=== PATIENT | male | born 1950 | race Caucasian/White ===

== ENCOUNTER → 2018-06-18 10:19 | Outpatient (CLI) | payer MEDICARE, SELFPAY ==
[2018-06-13 10:17] VITALS: BMI 38.6
--- NOTE | 2018-06-18 10:39 | RAD_ITS ---
STUDY: X-RAY CHEST REASON FOR EXAM: Male, 68 years old. Cough. TECHNIQUE: PA and lateral views of the chest. COMPARISON: None. FINDINGS: The lungs are well-expanded. No focal mass or infiltrate. The lungs are clear and expanded. There is no demonstrated pleural abnormality. Normal size heart. Normal mediastinum and esperanza. Normal visualized pulmonary arteries. Normal visualized aortic arch and descending thoracic aorta. There are diffuse degenerative changes of the visualized thoracic spine. There is degenerative osteoarthritis of the bilateral shoulders. There is no demonstrated abnormality of the visualized soft tissue structures of the upper abdomen. RAD/Chest PA and Lateral IMPRESSION: No acute cardiopulmonary disease. Electronically Signed: Nagi Sharp DO at 18:27 EST Tel [phone], Service support ,
[2018-06-18 10:53] LABS: Absolute Lymphocyte Count 1.46 X10^3/ul (0.83-4.51); Absolute Neutrophil Count 8.3 X10^3/uL (2.0-7.7); Basophil# 0.03 X10^3/uL; Basophil% 0.3 % (0-1); Eosinophil# 0.58 X10^3/uL; Eosinophils% 5.2 % (0-5); Hematocrit 41.3 % (40-54); Hemoglobin 13.9 g/dl (13.0-16.5); Lymphocyte # 1.46 X10^3/ul (4.0); Mean Corp Hgb Conc 33.7 g/gl (32-36); Mean Corpuscular Hgb 27.5 pg (27.0-32.0); Mean Corpuscular Volume 81.6 fL (80-94); Mean Platelet Vol. 11.1 fl (6.2-12.0); Monocyte% 6.2 % (0-10); Platelet Count 180 K/mm3 (150-450); RBC Distribution Width CV 14.8 % (11.6-14.6); RBC Distribution Width SD 42.4 fl (35.1-43.9); Red Blood Count 5.06 M/mm3 (4.6-6.2); White Blood Count 11.2 K/mm3 (4.4-11.0)
[2018-06-18 10:54] LABS: POSITIVE COUNT NO; POSITIVE DIFFERENTIAL NO; POSITIVE MORPHOLOGY NO
[2018-06-18 11:16] LABS: Anion Gap 9 (5-15); BUN 20 mg/dL (7-18); BUN/Creat Ratio 25.2 RATIO (10-20); Calcium,Total 8.5 mg/dL (8.5-10.1); Chloride 106 mmol/L (98-107); Creatinine, Serum 0.79 mg/dL (0.70-1.30); EST Glomerular Filtration Rate 103 mL/min (>60); Est Glom Filt Rate - Afr Amer 124 mL/min (>60); Glucose 248 mg/dL (74-106); Potassium 4.7 mmol/L (3.5-5.1); Sodium Level 139 mmol/L (136-145)
--- OUTSIDE RECORDS SUMMARY | 2018-08-11 15:24 | XMS RPT_ITS ---
:1950 Author Organization [facility] Support Name Relationship Address Phone RHIANNON SHIPLEYQIAN Unavailable [address] + [place] [address] MEGGAN MANDUJANO Unavailable [address] + [place] [address] R Unavailable Unavailable Unavailable RHIANNON SHIPLEYMIE Unavailable [address] + [place] [address] MEGGAN MANDUJANO Unavailable [address] + [place] [address] R Unavailable Unavailable Unavailable SHIPLEYRHIANNON SINGHMIE Unavailable [address] + [place] [address] MEGGAN MANDUJANO Unavailable [address] + [place] [address] R Unavailable Unavailable Unavailable SHIPLEYRHIANNON SINGHMIE Unavailable [address] + [place] [address] MEGGAN MANDUJANO Unavailable [address] + [place] [address] R Unavailable Unavailable Unavailable QUINTEN RHIANNONMIJohana Unavailable . + ., . . MEGGAN MANDUJANO Unavailable [address] + [place] [address] R Unavailable Unavailable Unavailable MEGGAN MANDUJANO Unavailable [address] + [place] [address] R Unavailable Unavailable Unavailable JAI MANDUJANO Unavailable [address] + [place] [address] JAI MANDUJANO Unavailable [address] + [place] [address] LUCIO MANDUJANOLENE Unavailable [address] + [place] [address] NAZIAXUQUELENE Unavailable [address] + [place] [address] Care Team Providers Name Role Phone ANNEMARIE OLGUIN, RITA Lazaro Attending Unavailable URIEL NARVAEZ MD Primary Care Unavailable AHSAN SAHU, Mel LINDA Attending Unavailable URIEL NARVAEZ MD Primary Care Unavailable Jaycee Perez Attending Unavailable Violetta, Efraín Attending Unavailable URIEL NARVAEZ Referring Unavailable Violetta, Elma Attending Unavailable Violetta, Efraín Referring Unavailable URIEL NARVAEZ Primary Care Unavailable Violetta, Efraín Attending Unavailable Violetta, Elma Referring Unavailable URIEL NARVAEZ Primary Care Unavailable Violetta, Elma Attending Unavailable Violetta, Elma Referring Unavailable URIEL NARVAEZ Primary Care Unavailable Violetta, Elma Attending Unavailable Violetta, Efraín Referring Unavailable URIEL NARVAEZ Primary Care Unavailable Violetta, Elma Consulting Unavailable PROBLEMS PROBLEMS DATE TYPE CONDITION / CODE ATTENDING STATUS SOURCE 06/18/2018 Unknown Z95.5 - Presence of Violetta, Elma Active [facility] coronary angioplasty [facility] implant and graft / Hospital Z95.5(ICD-10) Repository 06/18/2018 Unknown I25.10 - Violetta, Efraín Active [facility] Atherosclerotic [facility] heart disease of [facility] [place] coronary Repository artery without angina pectoris / I25.10(ICD-10) 06/18/2018 Unknown I10 - Essential Violetta, Efraín Active [facility] (primary) Community hypertension / Hospital I10(ICD-10) Repository 06/18/2018 Unknown R06.00 - Dyspnea, Violetta, Efraín Active [facility] unspecified / Community R06.00(ICD-10) Hospital Repository 06/13/2018 Unknown E78.5 - Violetta, Efraín Active [facility] Hyperlipidemia, Community unspecified / Hospital E78.5(ICD-10) Repository 11/22/2017 Admitting Diabetes mellitus AHSAN SAHU, Active [facility] Diagnosis due to underlying MS. MCKEON [facility] condition without Repository complications / E08.9(ICD-10) 11/22/2017 Admitting Mixed hyperlipidemia AHSAN SAHU, Active [facility] Diagnosis / E78.2(ICD-10) MS. LINDA [facility] Repository PROCEDURES PROCEDURES No Procedure Records FoundRESULTS RESULTS 12 LEAD ELECTROCARDIOGRAM Observed: 06/26/2018 Status: F Source: [place] 9:05 AM [facility] REPOSITORY [facility] Cardiovascular Services [address] [place] [address] 12 Lead EKG 06/23/18 0544 MR#: [id number] Acct: [id number] Name: NAZIASUSHIL River Rep #: [id number] : 1950 68 From: Efraín Shipley MD Attending Dr: Efraín Shipley MD Status: DEP [facility] Ordering Dr: Lane Hampton MD Date: 06/22/18 Location: ICU Sex: M C Admitted: Test Reason : AM EKG Blood Pressure : / mmHG Vent. Rate : 071 BPM Atrial Rate : 071 BPM P-R Int : 152 ms QRS Dur : 082 ms QT Int : 396 ms P-R-T Axes : 042 017 013 degrees QTc Int : 430 ms Normal sinus rhythm Normal ECG No previous ECGs available Confirmed by EFRAÍN SHIPLEY MD ([id number]), publications editor SAVANAH MCKNIGHT ([id number]) on 06/26/2018 9:07:07 AM Referred By: Efraín Shipley Confirmed By:EFRAÍN SHIPLEY MD 06/26/18 0907 Date Efraín Shipley MD CC: Efraín Shipley MD; Lane Hampton MD; Uriel Narvaez MD Signed 12 LEAD ELECTROCARDIOGRAM Observed: 06/26/2018 Status: F Source: [place] 9:05 AM [facility] REPOSITORY [facility] Cardiovascular Services [address] [place] [address] 12 Lead EKG 06/22/18 0943 MR#: [id number] Acct: [id number] Name: SUSHIL MANDUJANO Rep #: [id number] : 1950 68 From: Efraín Shipley MD Attending Dr: Efraín Shipley MD Status: DEP [facility] Ordering Dr: Lane Hampton MD Date: 06/23/18 Location: ICU Sex: M C Admitted: Test Reason : POST PCI Blood Pressure : / mmHG Vent. Rate : 061 BPM Atrial Rate : 061 BPM P-R Int : 160 ms QRS Dur : 084 ms QT Int : 386 ms P-R-T Axes : 037 020 020 degrees QTc Int : 388 ms Normal sinus rhythm Normal ECG No previous ECGs available Confirmed by EFRAÍN SHIPLEY MD ([id number]), publications editor SAVANAH MCKNIGHT ([id number]) on 06/26/2018 9:07:33 AM Referred By: Efraín Shipley Confirmed By:EFRAÍN SHIPLEY MD 06/26/18906 Date Efraín Shipley MD CC: Efraín Shipley MD; Lane Hampton MD; Uriel Narvaez MD Signed DISCHARGE INSTRUCTION Observed: 06/23/2018 Status: F Source: [place] 9:42 AM [facility] REPOSITORY [facility] Medical Records Department [address] [place] [address] Instructions for Home/Discharge Instructions 06/23/18 09 MR#: [id number] Acct: [id number] Name: SUSHIL MANDUJANO Rep #: [id number] : 1950 68 From: Efraín Shipley MD PCP: Uriel Narvaez MD Status: REG [facility] Discharge Diet: Low fat/ Low Cholesterol Lifting Restrictions: 10 pounds and also avoid any pushing or pulling for 3 days after your test. Additional Activity Instructions:: You must have someone drive you home. Do not drive until instructed by your doctor. You must have someone stay with you all night after your test. Rest in bed or on the couch until the next morning. Limit the number of times you go up and down stairs the day of your test. Apply pressure to the puncture site if you sneeze or cough. Call your doctor if your incision/area has: Increased Pain/ Swelling, Increased Redness, Foul Smelling Discharge, Swelling at the incision site Call your doctor if you observe: Fever of 101 or Higher Additional Dressing/Incision Instructions:: Keep the dressing (bandage) on until the next morning. You may then shower, but do not take a tub bath for 5 days after your test. It is normal to have some tenderness and discomfort at the puncture site. Sometimes bruising also occurs. However, if pain, numbness, or coldness occurs below the puncture site (in your leg, toes, arms or fingers) call your doctor at once. You may have a small, marble sized knot at the puncture site. This is normal. Do not rub it. It will go away in 4-6 weeks. Bleeding can occur from the area where the puncture was done. Blood may spurt or drip from the site. If blood spurts, apply pressure right away to stop bleeding and call 911. Although rare, bleeding into the tissue (hematoma) can also occur. If this happens, a large, firm area goose egg under the skin will appear. If any of these occur, lie down as flat as you can and have someone apply firm pressure to the cath site with a gauze pad or a clean washcloth for 10-15 minutes. Call 911 or go to the Emergency Department. Allergies/Adverse Reactions: Allergies amoxicillin [From Augmentin] Adverse Reaction (Verified 05/23/18 10:44) gi upset clavulanic acid [From Augmentin] Adverse Reaction (Verified 05/23/18 10:44) gi upset Medications to take at Discharge insulin NPH isophane U- 100 human 100 unit/mL subcutaneous suspension 50 unit SC BID ml 05/22/18 lisinopril 20 mg-hydrochlorothiazide 12.5 mg tablet 1 tab PO DAILY 05/22/18 sertraline 100 mg tablet 100 mg PO DAILY 05/22/18 aspirin 81 mg tablet,delayed release 81 mg PO DAILY #90 tab 06/13/18 atenolol 50 mg tablet 50 mg PO DAILY #90 tab 06/13/18 clopidogrel 75 mg tablet 75 mg PO DAILY #90 tab 06/13/18 metformin ER 500 mg tablet,extended release 24 hr 500 mg PO BID tab 06/13/18 rosuvastatin 20 mg tablet 20 mg PO DAILY #90 tab 06/13/18 Primary Care Physician: Uriel Narvaez MD [Primary Care Provider] - Test Results: Test results from this visit will be discussed in further detail at your follow-up appointment, if applicable. When: heart group office will call for follow up and stress test Proposed Discharge Date: 06/23/18 Cardiac Rehabilitation Info Cardiac Rehabilitation Program Information: Cardiac Rehabilitation is important for patients like you who are recovering from a heart problem. Cardiac rehabilitation programs are recognized as integral to the continued care of the patient with coronary heart disease. The cardiac rehabilitation program is designed to optimize a patient's physical, psychological, and social functioning. Health manager intensive care work in cardiac rehabilitation programs and assist you with getting the treatments you need to get stronger and healthier - like exercise, healthy eating habits, and medications. Cardiac rehabilitation has been show to help people with heart problems live longer and have better life enjoyment than people who do not go to cardiac rehabilitation. Please contact the Cardiac Rehabilitation Program at [facility] at in two weeks if you have not heard from them. 06/23/18 0942 <Electronically signed by Efraín Shipley MD> Date Efraín Shipley MD CC: Uriel Narvaez MD BEDSIDE GLUCOSE Collected: 06/23/2018 Status: F Source: [place] 6:51 AM [facility] REPOSITORY TYPE CODE TESTS RESULT OUT OF REFERENCE UNITS RANGE LAB L501.080 70-110 mg/dL High BEDSIDE GLU 234 Result Comment: MANAGEMENT OF PATIENT CARE PER NURSING PROTOCOL Performed By: #### L501.080 #### [facility] Point of Care [address] [place] [address] CBC-COMPLETE BLOOD CNT Collected: 06/23/2018 Status: F Source: [place] NO DIFF 4:10 AM [facility] REPOSITORY TYPE CODE TESTS RESULT OUT OF RANGE REFERENCE UNITS LAB L100.1000 4.4-11.0 K/mm3 High WBC 11.2 LAB L100.1200 4.6-6.2 M/mm3 Normal RBC 5.23 LAB L100.1300 13.0-16.5 g/dl Normal HGB 14.1 LAB L100.1400 40-54 % Normal HCT 42.1 LAB L100.1500 80-94 fL Normal MCV 80.5 LAB L100.1600 27.0-32.0 pg Normal MCH 27.0 LAB L100.1700 32-36 g/gl Normal MCHC 33.5 LAB L100.1810 11.6-14.6 % High RDW CV 15.0 LAB L100.1820 35.1-43.9 fl Normal RDW SD 43.5 LAB L100.1900 150-450 K/mm3 Normal PLT 178 LAB L100.2000 6.2-12.0 fl Normal MPV 10.9 Performed By: #### L100.0500 #### [facility] [address] [place], [place], [address] BASIC METABOLIC Collected: 06/23/2018 Status: F Source: [place] PROFILE (BMP) 4:10 AM [facility] REPOSITORY TYPE CODE TESTS RESULT OUT OF RANGE REFERENCE UNITS LAB L501.0100 74-106 mg/dL High GLU 205 Result Comment: Glucose result greater than or equal to 200 mg/dL suggests DIABETES MELLITUS per A.D.A. criteria. Please note revised GLUCOSE reference range effective 2017. LAB L501.1000 7-18 mg/dL Normal BUN 15 LAB L501.1100 0.70-1.30 mg/dL Normal CREAT,SERUM 0.73 Result Comment: The validity of the calculated GFR AND GFRAA in patients over 70 years has not been determined. Clinical correlation is essential. LAB L501.1110 >60 mL/min Normal EST GFR 113 Result Comment: Non- GFR Calc LAB L501.1115 >60 mL/min Normal EST GFR - AA 136 Result Comment: GFR Calc LAB L501.1255 ml/min Normal Estimated CRCL 74.25 LAB L501.1300 10-20 RATIO High BUN/CRE 20.4 LAB L501.2200 8.5-10 mg/dL Low .1 CA 8.4 LAB L501.5300 136-14 mmol/L Normal 5 NA 140 LAB L501.5600 3.5-5. mmol/L Normal 1 K 4.3 LAB L501.5900 98-107 mmol/L Normal CL 104 LAB L501.6100 21.0-3 mmol/L Normal 2.0 CO2 27.0 LAB L501.6200 5-15 Normal GAP 9 Performed By: #### L500.2500, L500.4100 #### [facility] [address] [place], [place], [id number] LIPID PROFILE Collected: 06/23/2018 Status: F Source: [place] 4:10 AM [facility] REPOSITORY TYPE CODE TESTS RESULT OUT OF RANGE REFERENCE UNITS LAB L501.4900 200 mg/dL Normal CHOL 120 Result Comment: <200 mg/dL Desirable 200-240 mg/dL Borderline >240 mg/dL High Risk LAB L501.5000 mg/dL High TRIG 314 Result Comment: The drugs N-Acetylcysteine and Metamizole may falsely depress this assay. Serum Triglycerides Reference Interval Normal <150 mg/dL Borderline high 150 - 199 mg/dL High 200 - 499 mg/dL Very High > or = 500 mg/dL LAB L501.6400 mg/dL Low HDL 25 Result Comment: The drugs N-Acetylcysteine and Metamizole may falsely depress this assay. Reference Range HDL <40 mg/dL Low HDL Cholesterol HDL >or= 60 mg/dL High HDL Cholesterol LAB L501.6500 0-130 mg/dL Normal LDL 32 LAB L501.6600 5-40 mg/dL High VLDL 63 Performed By: #### L500.2500, L500.4100 #### [facility] [address] [place], [place], [id number] BEDSIDE GLUCOSE Collected: 06/22/2018 Status: F Source: [place] 9:27 PM [facility] REPOSITORY TYPE CODE TESTS RESULT OUT OF REFERENCE UNITS RANGE LAB L501.080 70-110 mg/dL High BEDSIDE GLU 190 Result Comment: MANAGEMENT OF PATIENT CARE PER NURSING PROTOCOL Performed By: #### L501.080 #### [facility] Point of Care [address] [place], [place] [id number] BEDSIDE GLUCOSE Collected: 06/22/2018 Status: F Source: [place] 4:50 PM [facility] REPOSITORY TYPE CODE TESTS RESULT OUT OF REFERENCE UNITS RANGE LAB L501.080 70-110 mg/dL High BEDSIDE GLU 220 Result Comment: Dr Monet Followed MANAGEMENT OF PATIENT CARE PER NURSING PROTOCOL Performed By: #### L501.080 #### [facility] Point of Care [address] [place] [address] BEDSIDE GLUCOSE Collected: 06/22/2018 Status: F Source: [place] 11:24 AM [facility] REPOSITORY TYPE CODE TESTS RESULT OUT OF REFERENCE UNITS RANGE LAB L501.080 70-110 mg/dL High BEDSIDE GLU 140 Result Comment: MANAGEMENT OF PATIENT CARE PER NURSING PROTOCOL Performed By: #### L501.080 #### [facility] Point of Care [address] [place] [address] ACT ACTIVATED CLOTTING Collected: 06/22/2018 Status: F Source: [place] TIME 9:08 AM [facility] REPOSITORY TYPE CODE TESTS RESULT OUT OF RANGE REFERENCE UNITS LAB L9100.0100 74-137 sec High ACTk CLOT 153 TIME Performed By: #### L9100.0100 #### [facility] Point of Care [address] [place] [address] ECHO, COMPLETE W/ Observed: 06/19/2018 Status: F Source: [place] CONTRAST 5:33 PM [facility] REPOSITORY [facility] Cardiovascular Services [address] [place] [address] Echo Complete W/ Contrast 06/19/18 1149 MR#: [id number] Acct: [id number] Name: SUSHIL MANDUJANO Rep #: [id number] : 1950 68 From: Efraín Shipley MD Attending Dr: Efraín Shipley MD Status: REG CLI Ordering Dr: Efraín Shipley MD Date: 06/19/18 Location: [facility] Sex: M C Admitted: Reason For Study: CAD Procedure This was a 2D Doppler, Color Flow transthoracic echocardiogram. Exam performed in department. Left Ventricle Normal LV size. Left ventricular systolic function is normal. The estimated ejection fraction is 65 %. Stage 2 diastolic dysfunction. No regional wall motion abnormalities noted. Right Ventricle Normal RV size. Normal systolic function. Atria The left atrium is severely enlarged. The right atrium is mildly enlarged. Mitral Valve Mild focal mitral valve calcification. Mild-Moderate (1-2+) eccentric mitral valve insufficiency. Tricuspid Valve Normal tricuspid valve. Mild (1+) tricuspid valve insufficiency. Pulmonary artery systolic pressure is 35 mmHg. Aortic Valve Trisinus/trileaflet aortic valve. Mild focal aortic valve calcification. Pulmonic Valve Normal pulmonic valve. Great Vessels Normal aortic root. The pulmonary artery is normal size. Normal inferior vena cava. Pericardium/Pleural No pericardial effusion. Medication 22 gauge I.V. with prn adaptor inserted into left arm. Diluted definity 3ml given slow IV push to enhance endocardial definition. MMode/2D Measurements AND Calculations LVIDd: 5.2 cm IVSd: 1.3 cm Ao root diam: 3.9 cm LVIDs: 3.8 cm LVPWd: 1.4 cm RVDd: 3.9 cm FS: 27.4 % LAV(MOD-bp): 143.2 ml LA A4 area: 35.1 cm2 LA dimension(2D): 6.0 cm LAV(MOD-bp) Indexed: 60.1 ml/m2 LAV(MOD-sp2): 152.3 ml LAV(MOD-sp4): 129.3 ml RA A4 area: 21.2 cm2 Doppler Measurements AND Calculations MV E max juan: 81.2 cm/sec Lat Peak E' Juan: 6.7 cm/sec Med Peak E' Juan: 4.7 cm/sec MV A max juan: 76.7 cm/sec E/E' lat: 12.2 E/E' med: 17.4 MV E/A: 1.1 Ao V2 max: 151.6 cm/sec LV V1 max: 115.2 cm/sec PA V2 max: 86.1 cm/sec Ao max P.2 mmHg LV V1 max P.3 mmHg TR max juan: 275.4 cm/sec TR max P.3 mmHg Interpretation Summary Normal LV size. Left ventricular systolic function is normal. The estimated ejection fraction is 65 %. Stage 2 diastolic dysfunction. The left atrium is severely enlarged. Mild (1+) tricuspid valve insufficiency. Contrast injection was performed. Ordering Physician: Efraín Shipley Referring Physician: Uriel Narvaez Performed By: Keara Gaston RDCS 06/19/18 173 Date Efraín Shipley MD CC: Efraín Shipley MD; Uriel Narvaez MD Date Dictated: 06/19/18 1149 Date Transcribed: 06/19/181731 Cafe Aide: Signed CHEST PA AND LATERAL Observed: 06/18/2018 Status: F Source: [place] 10:39 AM [facility] REPOSITORY [facility] Imaging Services [address] [place] [address] Chest PA and Lateral MR#: [id number] Acct: [id number] Name: SUSHIL MANDUJANO Rep #: [id number] : 1950 M 68 From: Nagi Sharp DO PCP: Uriel Narvaez MD Status: REG CLI Study: Chest PA and Lateral Date of Exam: 06/18/18 Exam# [id number] Ordering Dr: Efraín Shipley MD STUDY: X-RAY CHEST REASON FOR EXAM: Male, 68 years old. Cough. TECHNIQUE: PA and lateral views of the chest. COMPARISON: None. FINDINGS: The lungs are well-expanded. No focal mass or infiltrate. The lungs are clear and expanded. There is no demonstrated pleural abnormality. Normal size heart. Normal mediastinum and esperanza. Normal visualized pulmonary arteries. Normal visualized aortic arch and descending thoracic aorta. There are diffuse degenerative changes of the visualized thoracic spine. There is degenerative osteoarthritis of the bilateral shoulders. There is no demonstrated abnormality of the visualized soft tissue structures of the upper abdomen. RAD/Chest PA and Lateral IMPRESSION: No acute cardiopulmonary disease. Electronically Signed: Nagi Sharp DO at 18:27 EST Tel [phone], Service support , CC: Efraín Shipley MD; Uriel Narvaez MD Cafe Aide: Signed CBC W/DIFF, AUTOMATED Collected: 06/18/2018 Status: F Source: [place] 10:29 AM [facility] REPOSITORY TYPE CODE TESTS RESULT OUT OF RANGE REFERENCE UNITS LAB L100.1000 4.4-11.0 K/mm3 High WBC 11.2 LAB L100.1200 4.6-6.2 M/mm3 Normal RBC 5.06 LAB L100.1300 13.0-16.5 g/dl Normal HGB 13.9 LAB L100.1400 40-54 % Normal HCT 41.3 LAB L100.1500 80-94 fL Normal MCV 81.6 LAB L100.1600 27.0-32.0 pg Normal MCH 27.5 LAB L100.1700 32-36 g/gl Normal MCHC 33.7 LAB L100.1810 11.6-14.6 % High RDW CV 14.8 LAB L100.1820 35.1-43.9 fl Normal RDW SD 42.4 LAB L100.1900 150-450 K/mm3 Normal PLT 180 LAB L100.2000 6.2-12.0 fl Normal MPV 11.1 LAB L100.2100 47-70 % High NEUT% 74.0 LAB L100.2200 19-41 % Low LY% 13.0 LAB L100.2300 0-10 % Normal MONO% 6.2 LAB L100.2400 0-5 % High EO% 5.2 LAB L100.2500 0-1 % Normal BASO% 0.3 LAB L100.2550 0.0-0.9 % High IM GRAN % 1.300 Result Comment: IG% - Immature Granulocytes (promyelocytes, myelocytes and metamyelocytes) > 1% indicates that a LEFT SHIFT is Present. LAB L100.2620 2.0-7.7 X10 3/uL High Absolute Neut 8.3 LAB L100.2720 0.83-4.51 X10 3/ul Normal Absolute Lymph 1.46 Performed By: #### L100.0100 #### [facility] [address] [facility] [place], [address] BASIC METABOLIC Collected: 06/18/2018 Status: F Source: [place] PROFILE (BMP) 10:29 AM [facility] REPOSITORY TYPE CODE TESTS RESULT OUT OF RANGE REFERENCE UNITS LAB L501.0100 74-106 mg/dL High GLU 248 Result Comment: Glucose result greater than or equal to 200 mg/dL suggests DIABETES MELLITUS per A.D.A. criteria. Please note revised GLUCOSE reference range effective 2017. LAB L501.1000 7-18 mg/dL High BUN 20 LAB L501.1100 0.70-1.30 mg/dL Normal CREAT,SERUM 0.79 Result Comment: The validity of the calculated GFR AND GFRAA in patients over 70 years has not been determined. Clinical correlation is essential. LAB L501.1110 >60 mL/min Normal EST GFR 103 Result Comment: Non- GFR Calc LAB L501.1115 >60 mL/min Normal EST GFR - AA 124 Result Comment: GFR Calc LAB L501.1300 10-20 RATIO High BUN/CRE 25.2 LAB L501.2200 8.5-10.1 mg/dL CA Normal 8.5 LAB L501.5300 136-145 mmol/L NA Normal 139 LAB L501.5600 3.5-5.1 mmol/L K Normal 4.7 LAB L501.5900 98-107 mmol/L CL Normal 106 LAB L501.6100 21.0-32.0 mmol/L Normal CO2 24.0 LAB L501.6200 5-15 Normal GAP 9 Performed By: #### L500.2500 #### [facility] [address] [place], [place], [address] CARDIOLOGY VISIT Observed: 06/13/2018 Status: F Source: [place] REPORT 11:09 AM [facility] REPOSITORY [facility] [address] [place] [address] OFFICE VISIT Date of Service: 06/13/18 MR#: [id number] Acct: [id number] Name: SUSHIL MANDUJANO Rep #: [id number] : 1950 Provider: Efraín Shipley MD Age/Sex: 68/M Location: [facility] Status: Signed [facility] HPI Chief Complaint: Initial visit Details: SUSHIL MANDUJANO, is a 68 M who presents to the office today for an initial visit. He is a pleasant gentleman with a history of hypertension, hyperlipidemia, diabetes mellitus, obesity who presents for an evaluation. His history dates back to 2009 when he underwent a cardiac catheterization and underwent PCI with a drug-eluting stents to the left anterior descending artery as well as PCI and a drug-eluting stent to the right coronary artery. He had been having chest discomfort and in May 2017 he underwent a pharmacologic myocardial perfusion stress test which demonstrated evidence of mild anteroseptal, mild inferior wall ischemia. He underwent a cardiac catheterization which demonstrated 99% stenosis in the mid left anterior descending artery. The first diagonal vessel had a 50% stenosis the first obtuse marginal branch had a 50% stenosis he underwent angioplasty and stenting with a 2.75 x 20 mm Synergy stent to the left anterior descending artery. He never went for the right coronary artery angioplasty. Since then he is done well but he has had occasional chest discomfort. He has not had any dizziness or diaphoresis no near syncope or syncope. He is also had muscle and joint discomfort from the atorvastatin. He has had mild pedal edema he did discontinue his Lasix 2 months ago. His physical exam today demonstrates clear lung montalvo regular rate and rhythm and no pedal edema. Intake Vital Signs06/13/18 Blood Pressure 150/7 H 06/13/18 Blood Pressure Position Standing 06/13/18 Pulse Rate 70 06/13/18 Height 5 ft 11 in 06/13/18 Weight: 277 lb 06/13/18 Body Mass Index (BMI) 38.6 Intake Visit Reasons: Transfer from [facility], stent @ [place] Jun 2017 Allergies amoxicillin [From Augmentin] Adverse Reaction (Verified 05/23/18 10:44) gi upset clavulanic acid [From Augmentin] Adverse Reaction (Verified 05/23/18 10:44) gi upset Medications insulin NPH isophane U- 100 human 100 unit/mL subcutaneous suspension 50 unit SC BID ml 05/22/18 [History Confirmed 06/13/18] lisinopril 20 mg-hydrochlorothiazide 12.5 mg tablet 1 tab PO DAILY 05/22/18 [History Confirmed 06/13/18] sertraline 100 mg tablet 100 mg PO DAILY 05/22/18 [History Confirmed 06/13/18] aspirin 81 mg tablet,delayed release 81 mg PO DAILY #90 tab 06/13/18 [Rx Confirmed 06/13/18] atenolol 50 mg tablet 50 mg PO DAILY #90 tab 06/13/18 [Rx Confirmed 06/13/18] clopidogrel 75 mg tablet 75 mg PO DAILY #90 tab 06/13/18 [Rx Confirmed 06/13/18] metformin ER 500 mg tablet,extended release 24 hr 500 mg PO BID tab 06/13/18 [History Confirmed 06/13/18] rosuvastatin 20 mg tablet 20 mg PO DAILY #90 tab 06/13/18 [Rx Confirmed 06/13/18] [facility] Medical History Atherosclerosis of coronary artery of [place] heart without angina pectoris (Chronic) Hyperlipidemia (Chronic) Essential (primary) hypertension (Chronic) Obesity (Chronic) Obstructive sleep apnea (Chronic) Osteoarthritis (Chronic) Type 2 diabetes mellitus (Chronic) Surgical History History of coronary artery stent placement (Resolved 06/16/17) Amputation finger (Resolved) History of appendectomy (Resolved) History of repair of rotator cuff (Resolved) History of umbilical hernia repair (Resolved) Family History Sister Hypertension Father Myocardial infarction Mother Cancer Social History Smoking Status: Former smoker quit date: 07/17/09 ROS Const Const: Positive for fatigue (Increase fatigue) and weakness; negative for difficulty sleeping, frequent falls, excessive sweating or headache(s) Eyes Eyes: Negative for loss of peripheral vision, transient loss of vision, blurry vision, tunnel vision or double vision ENT ENT: Negative for headache(s), dizziness, Nosebleed/epistaxis or balance problems Cardio Chest Pain: Yes Palpitations: No Edema: Bilateral (BLE ankle edema) Muscle aches with walking: None Resp Respiratory: Positive for SOB with activity (SOB with ambulation); negative for SOB at rest, SOB orthopnea\SOB lying down, paroxysmal nocturnal dyspnea or Cough GI GI: Negative nausea, heartburn, black,tarry stools or vomiting : Negative for hematuria Musc Musc: Positive for muscle aches/ myalgia and joint pain; negative for balance problems or muscle weakness Skin Skin: Negative non-healing lesions, unusual bruising or rash Neuro Neuro: Positive for weakness, lightheadedness, orthostatic symptoms, lack of coordination and other (worsening tremors ); negative for frequent falls, headache(s), blurry vision, double vision, dizziness, near syncope or syncope Mata Hematologic/Lymphatic: Negative for easy bruising or easy bleeding Endo Endo: Positive for fatigue (Increase fatigue); negative for excessive sweating or increased thirst/drinking Psych Psych: Negative for anxiety or depression Allergy Allergy/Immunology: Negative for hives, Negative for rash Cardiology Exam Const Appearance: cooperative, healthy appearing, well developed, well groomed and no acute distress Nutritional Appearance: well nourished and average body habitus Orientation: alert, awake and oriented x3 Head Head: normal to inspection, normocephalic and atraumatic Ears: hearing grossly normal bilaterally and external ears normal Nose: external nose normal, nasal mucous membranes and turbinates normal, nares normal, septum normal, no nasal discharge Face and Sinus: face symmetric Mouth: oral mucosae normal, tongue normal, oropharynx normal and moist mucous membranes Teeth and gingiva: dentition normal Throat: posterior oropharynx normal, tonsils normal and uvula midline Eyes General: appearance normal, both eyes and all related structures Eyelids: eyelids normal Conjunctivae: conjunctivae normal Pupils: PERRL, normal by confrontation and accommodation normal EOM: EOM intact bilaterally Neck Neck: normal visual inspection, trachea midline and no JVD JVD: +5 Carotids: normal carotid upstroke and bounding pulses Chest Chest inspection: normal inspection of the chest, symmetric chest movement and normal respiratory effort Auscultation: Bilateral: Clear to Auscultation Cardio Palpation: normal PMI Rate: regular rate Rhythm: regular rhythm Heart sounds: S1 normal, S2 normal and normal, physiologic split S2; negative rub, gallop or murmur GI GI: normal to inspection, soft, no hepatosplenomegaly and bowel sounds present Neuro General: alert, awake, oriented x3, no focal sensory deficit, gait normal and moves all extremities Skin Skin: no rashes or lesions noted Extremities Pulses: Normal: Right Femoral Pulse, Left Femoral Pulse, Right Dorsalis Pedis Pulse, Left Dorsalis Pedis Pulse, Right Posterior Tibial Pulse, Left Posterior Tibial Pulse, Right Radial Pulse, Left Radial Pulse Lower Extremity Edema: None: Bilateral Musculoskel Musculoskeletal: No joint tenderness Psych Psychological: normal affect Assessment AND Plan 1. Atherosclerosis of coronary artery of [place] heart without angina pectoris I25.10 TXR-PYV-FAZ-Mid LAD w/ 2.75 x 20 mm Synergy MR Stent 06/16/2017 PCI-STEPHANIE-Mid PDA w/ 2.5 x 12 mm Promus Stent, STEPHANIE-Mid RCA w/ 3.0 x 15 mm Promus 03/08/2010 PCI-STEPHANIE-Mid LAD w/ 3.0 x 15 mm and 3.0 x 24 mm [place] Stent 03/02/2010 Plan He does have atherosclerosis noted with occasional chest discomfort. He has a known stenosis in the right coronary artery for which he is due to have angioplasty. This was last evaluated in June 2017. My recommendation at this time will be to maximally medically treat him and pursue a cardiac catheterization with a view to angioplasty and stenting of the above vessels. This has been discussed with him and his they understand and agree to proceed. He will be started back on his clopidogrel in addition to a baby aspirin. Beta-blockers will be continued as well as high intensity statin. Orders Orders: 2. Dyspnea R06.00 Plan He does have some shortness of breath which is likely secondary to diastolic dysfunction and no angina. Recommendation will be for him to obtain an echocardiogram to assess his left ventricular function. Further recommendations will be made depending on the results of the above as well. Orders Orders: 3. Essential (primary) hypertension I10 Plan He does have a history of hypertension which is not very well controlled I would recommend that we increase his atenolol to 50 mg once a day in addition to his lisinopril hydrochlorothiazide. Orders Orders: 4. Hyperlipidemia E78.5 Plan He does have a history of hyperlipidemia. For secondary risk factor modification I would recommend that we place him on rosuvastatin 20 mg a day. He did have muscle aches with the atorvastatin and this will be discontinued. This is all been discussed with him and his they understand and agree to proceed. Thank you for allowing me to participate in the care of your patient. Please don't hesitate to call if any issues arise Orders Orders: Plan Detail Other Orders Orders: Other Medications New: Discontinued: Coding Level of Care Code Off vis,new,level 5 Diagnoses Atherosclerosis of coronary artery of [place] heart without angina pectoris I25.10 Dyspnea R06.00 Essential (primary) hypertension I10 Hyperlipidemia E78.5 Coding Level of Care Code Off vis,new,level 5 Diagnoses Atherosclerosis of coronary artery of [place] heart without angina pectoris I25.10 Dyspnea R06.00 Essential (primary) hypertension I10 Hyperlipidemia E78.5 06/13/18 1109 <Electronically signed by Efraín Shipley MD> Date Efraín Shipley MD Cosigner Signature: Date (if applicable) CC: Uriel Narvaez MD 12 LEAD EKG PERFORMED Observed: 06/13/2018 Status: F Source: [facility] [place], [place] 10:08 AM [facility] [place] REPOSITORY [facility] [address] [address] 12 Lead EKG performed by [facility] [place] [place] 05/23/18 1055 MR#: [id number] Acct: [id number] Name: SUSHIL MANDUJANO Rep #: [id number] : 1950 68 From: Efraín Shipley MD Attending Dr: Efraín Shipley MD Status: DEP AMB Ordering Dr: Efraín Shipley MD Date: 05/23/18 [place] [facility] [place] Sex: M C Admitted: BMS/12 Lead EKG performed by [facility] [place] [place] ECG Report Interpretation Sinus Rhythm WITHIN NORMAL LIMITSElectronically signed on 06/20/2018 at 16:32 by Efraín Shipley [facility] Software Version [id number] 06/20/18 1636 Date Efraín Shipley MD CC: Uriel Narvaez MD Date Dictated: 05/23/18 1055 Date Transcribed: 05/23/18 1055 [employer]ide: [place] Signed LIPID Collected: 11/22/2017 Status: F Source: [facility] 9:10 AM [facility] EMERGENCY DEPARTMENT REPOSITORY TYPE CODE TESTS RESULT OUT OF REFERENCE UNITS RANGE LAB CHOL(LOINC 131-200 mg/dL ) Low Cholesterol 118 Result Comment: Cholesterol Reference Interval: Less than 200 Desirable 200-239 Borderline high risk 240 and above High risk LAB TRIG(LOINC) 40-150 mg/dL Triglycerides High 232 Result Comment: Triglyceride Reference Interval: Less than 150 Normal 150-199 Borderline high risk 200-499 High risk 500 or higher Very high risk LAB HD(LOINC) 35-90 mg/dL HDL Low Cholesterol 28 Result Comment: HDL Reference Interval: Less than 40 Low - high risk 60 or above Optimal/lowers risk LAB LDL(LOINC) 0-130 mg/dL LDL Cholesterol 44 Result Comment: LDL is a calculated result and requires a 12-hr fast. LDL Reference Interval: Less than 100 Optimal 100-129 Near or above optimal 130-159 Borderline high risk 160-189 High risk 190 and above Very high risk Performed By: #### LIPID, CMP, GFR #### [place] [address] [place] [employer] [place], [place] [address] CMP Collected: 11/22/2017 Status: F Source: [facility] 9:10 AM [facility] REPOSITORY TYPE CODE TESTS RESULT OUT OF REFERENCE UNITS RANGE LAB GLU(LOINC) 80-115 mg/dL Glucose High Level 248 LAB NA(LOINC) 136-146 mEq/L Sodium Level 139 LAB K(LOINC) 3.5-5.1 mEq/L Potassium Level 4.8 LAB CL(LOINC) 98-107 mEq/L Chloride 103 LAB CO2(LOINC) 23-31 mEq/L CO2 28 LAB EBAL(LOINC mEq/L ) Electrolyte Balance 8.0 LAB BUN(LOINC) 7.0-18.0 mg/dL BUN 17.2 LAB CRE(LOINC) 0.6-1.2 mg/dL Creatinine Lvl (s) 0.6 LAB BC(LOINC) 7-27 ratio High BUN/Creatinine 29 Ratio LAB CA(LOINC) 8.4-10.2 mg/dL Calcium Lvl 8.9 LAB PROT(LOINC 6.0-8.3 G/dL ) Total Protein 7.1 LAB ALB(LOINC) 3.4-4.8 G/dL Albumin Level 4.0 LAB GLB(LOINC) G/dL Globulin 3.1 LAB AG(LOINC) 1.1-2.5 ratio A/G Ratio 1.3 LAB BILT(LOINC 0.2-1.0 mg/dL ) Bili Total 0.4 LAB AP(LOINC) 40-135 IU/L Alk Phos 87 LAB AST(LOINC) 10-40 IU/L AST/SGOT 15 LAB ALT(LOINC) 10-35 IU/L ALT/SGPT 15 Performed By: #### LIPID, CMP, GFR #### [place] [address] [place] [employer] [place], [place] [address] .GFR Collected: 11/22/2017 Status: F Source: [facility] 9:10 AM [facility] REPOSITORY TYPE CODE TESTS RESULT OUT OF REFERENCE UNITS RANGE LAB GFRAA(LOINC ml/min/1.73 ) sqm GFR 148 [place] Result Comment: GFR Population mean for , Non- Americans Ages 20-29 = 116 mL/min/1.73 sq.m. Ages 30-39 = 107 mL/min/1.73 sq.m. Ages 40-49 = 99 mL/min/1.73 sq.m. Ages 50-59 = 93 mL/min/1.73 sq.m. Ages 60-69 = 85 mL/min/1.73 sq.m. Ages 70+ = 75 mL/min/1.73 sq.m. Chronic Kidney Disease: Less than 60 mL/min/1.73 square meters End Stage Renal Disease: Less than 15 mL/min/1.73 square meters LAB GFRNO(LOINC) ml/min/1.73sqm GFR Non- >60 Result Comment: GFR Population mean for , Non- Americans Ages 20-29 = 116 mL/min/1.73 sq.m. Ages 30-39 = 107 mL/min/1.73 sq.m. Ages 40-49 = 99 mL/min/1.73 sq.m. Ages 50-59 = 93 mL/min/1.73 sq.m. Ages 60-69 = 85 mL/min/1.73 sq.m. Ages 70+ = 75 mL/min/1.73 sq.m. Chronic Kidney Disease: Less than 60 mL/min/1.73 square meters End Stage Renal Disease: Less than 15 mL/min/1.73 square meters Performed By: #### LIPID, CMP, GFR #### [place] [address] [address] XR WRIST MINIMUM 3 Observed: 11/05/2017 Status: F Source: [facility] VIEWS LEFT 2:22 PM [facility] REPOSITORY ORIGINAL XR WRIST MINIMUM 3 VIEWS LEFT, 11/05/2017 2:23 PM INDICATION: pain COMPARISON: No FINDINGS: There is mild irregularity at the volar aspect of the distal radius, with a small linear density best seen on oblique view. No other fractures are seen. A small os epilunatum is incidentally n oted. There is mild soft tissue swelling. IMPRESSION: Questionable small distal radial fracture. Interpreted By: Alejandro Weaver MD Preliminary Report By: Alejandro Weaver MD Electronically Signed By: Alejandro Weaver MD Dictated Date: 11/05/2017 2:29:29 PM Prelim Date: 11/05/2017 2:29:29 PM Sign Date: 11/05/2017 2:34:31 PM XR HAND MINIMUM 3 Observed: 11/05/2017 Status: F Source: [facility] VIEWS LEFT 2:22 PM [facility] REPOSITORY ORIGINAL XR HAND MINIMUM 3 VIEWS LEFT, 11/05/2017 2:23 PM INDICATION: pain COMPARISON: No FINDINGS: There are no acute fractures or dislocations. Alignment is within normal limits. There is joint space narrowing, as prominently in the metacarpophalangeal joints. The soft tissues are unremarkable in appearance. IMPRESSION: Degenerative joint disease, mainly at the 2nd and 3rd carpophalangeal joints. No acute findings. Interpreted By: Alejandro Weaver MD Preliminary Report By: Alejandro Weaver MD Electronically Signed By: Alejandro Weaver MD Dictated Date: 11/05/2017 2:34:50 PM Prelim Date: 11/05/2017 2:34:50 PM Sign Date: 11/05/2017 2:36:28 PM ALLERGIES ALLERGIES DATE TYPE / CODE NAME / CODE REACTION SEVERITY SOURCE 05/23/2018 Drug clavulanic gi upset Unknown [place] Allergy/416 acid/[id number](R [facility] 501134([facility] ED [facility]) Repository 05/23/2018 Drug amoxicillin/F0060 gi upset Unknown [place] Allergy/416 43533(RXNORM) [facility] 962555([facility] ED CT) Repository ENCOUNTERS ENCOUNTERS ADMIT/DISCHARGE ACCOUNT NUMBER ADMITTING ENCOUNTER LOCATION SOURCE CLASS 06/23/2018 [id number] Ambulatory BMSBuilding: [place] BMS.CF.[facility] Repository 06/22/2018/06/23/20 [id number] Ambulatory [place] [address] [place] [address] ding:CLSPRoo Repository m: [id number] 06/19/2018 [id number] [facility] 06/18/2018 [id number] Ambulatory [facility] ding:LAB Repository 06/13/2018/06/13/20 [id number] Ambulatory BMSBuilding: [place] 18 BMS.[facility] Repository 05/22/2018 [id number] Ambulatory BMSBuilding: [place] BMS.[facility] Repository 11/22/2017/11/27/19 [id number] Ambulatory [place] 18 [facility] ding:[facility] Repository 11/05/2017/11/06/19 [id number] Emergency BBuilding:ER [place] 18 [facility] Repository PAYERS PAYERS ENCOUNTER GUARANTOR PAYER SUBSCRIBER SOURCE 06/23/2018 SUSHIL Holman Primary SUSHIL Ng [id number] Insurance:[place] HERSHBERGERDOB: [facility] [id number] [place] MEDICARE[place] Repository [address]Sxe: (330) Number: [phone] () [id number] Date: [place], [place] [address]HK: 06/23/2018 Secondary NOT GIVENUNK Hernandez Insurance:SELF PAY [facility] Number: Effective Repository Date:2018-06-23 06/22/2018 SUSHIL Holman Primary SUSHIL Ng [id number] Insurance:[place] HERSHBERGERDOB: [facility] [id number] [place] MEDICAREPolicy Repository [address]Bvx: (330) Number: [phone] () [id number] Date: [place], [place] [address]ES: 06/22/2018 Secondary NOT GIVENUNK [place] Insurance:SELF PAY [facility] Number: Effective Repository Date:2018-06-13 06/19/2018 SUSHIL Holman Primary SUSHIL Ng [id number] Insurance:[place] HERSHBERGERDOB: [facility] [id number] [place] MEDICAREPolicy Repository [address]Wij: (330) Number: [phone] () [id number] Date: [place], [place] [address]MN: 06/19/2018 Secondary NOT GIVENUNK Hernandez Insurance:SELF PAY [facility] Number: Effective Repository Date:2018-06-13 06/18/2018 SUSHIL Holman Primary SUSHIL Ng [id number] Insurance:[place] HERSHBERGERDOB: [facility] SECURE CARE [id number] [place] MEDICAREPolicy Repository [address]Qel: (330) Number: [phone] () [id number] Date: [place], [place] [address]TA: 06/18/2018 Secondary NOT GIVENUNK [place] Insurance:SELF PAY [facility] Number: Effective Repository Date:2018-06-18 06/13/2018 SUSHIL Holman [id number] Insurance:COMMERCIAL HERSHBERGERDOB: [facility] Number: [id number] [id number] Repository [address]Fjh: (330) Date:2018-05-[place] [phone] () .WP: . 06/13/2018 Secondary NOT GIVENUNK Hernandez Insurance:SELF PAY [facility] Number: Effective Repository Date:2018-05-16 05/22/2018 SUSHIL Holman Primary NOT GIVENUNK [place] [id number] Insurance:SELF PAY [place] Number: Effective Repository [id number]: (330) Date:2018-05-22 [phone] () 11/22/2017 SUSHIL Holman Primary SUSHIL Holman [facility] HERSHBERGERDOB: Insurance:SECURECARE HERSHBERGERDOB: [facility] [id number] [facility] MEDICAREPolicy [id number] Repository [facility] Number: [address] [place] [address] [id number] [place], [place] [address]Shd: (330) Date:[id number]: [id number] [phone] (HP)Tel: ([phone]) Name:[id number] NATIONAL (HP) (WP) RO[address] 000-0000 (WP) [place], [place] [address]FR: 11/05/2017 [facility]:SECURECARE HERSHBERGERDOB: [facility] [id number] [facility] MEDICAREPolicy [id number] Repository [facility] Number: [address] [place], [place] [id number] [facility], [place] [address]Yqw: (330) Date:[id number]: [id number] [phone] (HP)Tel: ([phone]) Name:[id number] NATIONAL (HP) (WP) ROAD ESt 000-0000 (WP) [place], [place] [address]DR:
== END ==
LOC: LAB 10:24
PROVIDERS: Family Provider Family Medicine; PCP Family Medicine; Referring Provider Internal Medicine Cardiovascular Disease; Visit Provider Internal Medicine Cardiovascular Disease
DX: I25.10 Atherosclerotic heart disease of native coronary artery without angina pectoris (principal); R07.9 Chest pain, unspecified; Z95.5 Presence of coronary angioplasty implant and graft
CPT/HCPCS: 36415; 71046; 80048; 85025

== ENCOUNTER → 2018-06-19 11:26 | Outpatient (CLI) | payer MEDICARE, SELFPAY ==
[2018-06-13 10:17] VITALS: BMI 38.6
--- NOTE | 2018-06-19 11:31 | ECHOCS_ITS ---
Reason For Study: CAD Procedure This was a 2D Doppler, Color Flow transthoracic echocardiogram. Exam performed in department. Left Ventricle Normal LV size. Left ventricular systolic function is normal. The estimated ejection fraction is 65 %. Stage 2 diastolic dysfunction. No regional wall motion abnormalities noted. Right Ventricle Normal RV size. Normal systolic function. Atria The left atrium is severely enlarged. The right atrium is mildly enlarged. Mitral Valve Mild focal mitral valve calcification. Mild-Moderate (1-2+) eccentric mitral valve insufficiency. Tricuspid Valve Normal tricuspid valve. Mild (1+) tricuspid valve insufficiency. Pulmonary artery systolic pressure is 35 mmHg. Aortic Valve Trisinus/trileaflet aortic valve. Mild focal aortic valve calcification. Pulmonic Valve Normal pulmonic valve. Great Vessels Normal aortic root. The pulmonary artery is normal size. Normal inferior vena cava. Pericardium/Pleural No pericardial effusion. Medication 22 gauge I.V. with prn adaptor inserted into left arm. Diluted definity 3ml given slow IV push to enhance endocardial definition. MMode/2D Measurements & Calculations LVIDd: 5.2 cm IVSd: 1.3 cm Ao root diam: 3.9 cm LVIDs: 3.8 cm LVPWd: 1.4 cm RVDd: 3.9 cm FS: 27.4 % LAV(MOD-bp): 143.2 ml LA A4 area: 35.1 cm2 LA dimension(2D): 6.0 cm LAV(MOD-bp) Indexed: 60.1 ml/m2 LAV(MOD-sp2): 152.3 ml LAV(MOD-sp4): 129.3 ml RA A4 area: 21.2 cm2 Doppler Measurements & Calculations MV E max juan: 81.2 cm/sec Lat Peak E' Juan: 6.7 cm/sec Med Peak E' Juan: 4.7 cm/sec MV A max juan: 76.7 cm/sec E/E' lat: 12.2 E/E' med: 17.4 MV E/A: 1.1 Ao V2 max: 151.6 cm/sec LV V1 max: 115.2 cm/sec PA V2 max: 86.1 cm/sec Ao max P.2 mmHg LV V1 max P.3 mmHg TR max juan: 275.4 cm/sec TR max P.3 mmHg Interpretation Summary Normal LV size. Left ventricular systolic function is normal. The estimated ejection fraction is 65 %. Stage 2 diastolic dysfunction. The left atrium is severely enlarged. Mild (1+) tricuspid valve insufficiency. Contrast injection was performed. Ordering Physician: Efraín Shipley Referring Physician: Uriel Garcia Performed By: Keara Gaston RDCS
== END ==
PROVIDERS: Family Provider Family Medicine; PCP Family Medicine; Referring Provider Internal Medicine Cardiovascular Disease; Visit Provider Internal Medicine Cardiovascular Disease
DX: I25.10 Atherosclerotic heart disease of native coronary artery without angina pectoris (principal)
CPT/HCPCS: 93306; Q9957; A4216; C8929

== ENCOUNTER 2018-06-22 07:50 | Day surgery (SDC) | payer MEDICARE, SELFPAY ==
[2018-06-13 10:17] VITALS: BMI 38.6
[2018-06-21 08:27] VITALS: BMI 38.6
[2018-06-22] VITALS (19 sets, daily range): BP systolic 134–172; BP diastolic 67–95; PULSE 53–69; RESP 13–20; TEMP 36.3–36.8; O2SAT 93–98; BMI 39.4; BMI 38.6
--- NOTE | 2018-06-22 08:51 | CL.D_ITS ---
Patient Name: SUSHIL MANDUJANO Study Date: 06/22/2018 Performing: Efraín Shipley MD Ht: 70.86 inches 180 cm : 1950 Wt: 277.78 lbs 126 kg Age: 68 Gender: male BSA: 2.42 PROCEDURE(S) PERFORMED [id number]/COR/LV CLINICAL PROFILE AND INDICATIONS Indications: Suspected CAD Heart Failure: None Stress/Imaging Stress Test w/SPECT MPI: Yes Result: Positive Intermediate RiskStress Test with SP ECT MPI: Positive Intermediate Risk CAD Presentations: Stable angina. CONCLUSIONS Previously placed stent in the left anterior descending artery is patent with mild in-stent stenosis, previously placed stent in the right coronary artery is patent. Significant stenosis noted in the d istal right coronary artery. RECOMMENDATIONS Referred for immediate PCI DESCRIPTION OF PROCEDURE The patient arrived to the procedure lab. The risks and benefits of the procedure as well as a full d escription of our services here and current unavailability of surgical backup were fully explained to the patient and/or their significant other prior to the catheterization. The Timeout was completed, verifying the correct patient and procedure. The patient's procedural site was prepped and draped in the usual fashion. Local anesthetic was given subcutaneously to right groin region with Lidocaine 2%. Using a modified Seldinger technique, arterial access was obtained via the right femoral artery, a 5 Fr sheath was inserted. Left Coronary Artery selective angiography was performed in multiple views u sing a 5 Fr. JL4 catheter. Right Coronary Artery selective angiography was then performed in multiple views using a 5 Fr. 3DRC (Jackson) catheter. Left Ventriculography was performed in PELAYO projection using a 5 Fr. Pigtail catheter. LV to AO pullback pressures were then recorded. CORONARY ANGIOGRAPHY DOMINANCE: Co- Dominant LEFT HEART ASSESSMENT Left Ventricular Ejection Fraction: by LV Gram 60 % Normal LV wall motion Normal Left Ventricular systolic function LEFT MAIN: Angiographically normal LEFT ANTERIOR DECENDING ARTERY: PROX LAD: Previously placed stent has an instent 20 % restenosis DIAGONAL 1: Ostial - 50 % Stenosis CIRCUMFLEX ARTERY: Moderate luminal irregularities up to 50% RIGHT CORONARY ARTERY: PROX RCA: Previously placed stent is patent DISTAL RCA: 80 % Stenosis COMPLICATIONS PROCEDURE MEDICATIONS Versed 1 mg IV Plavix 75 mg PO 06/22/2018 08:09:45 SUMMARY OF HEMODYNAMIC DATA Time AIR REST ECG 08:07:32 AO 157/89 (115) SA 08:27:57 LV 133/18, 27 08:39:14 LV 131/11, 28 08:40:19 LV 133/12, 30 08:40:25 LVp 134/10, 25 08:40:32 AOp 139/69 (94) 08:40:37 Signed By Efraín Shipley MD On 06/22/2018 08:50:15 Efraín Shipley MD
[2018-06-22 09:26] LABS: ACT Activated Clotting Time 153 sec (74-137)
--- NOTE | 2018-06-22 09:28 | CL.I_ITS ---
Patient Name: SUSHIL MANDUJANO Study Date: 06/22/2018 Performing: Lane Hampton MD Ht: 70.86 inches 180 cm : 1950 Wt: 277.78 lbs 126 kg Age: 68 Gender: male BSA: 2.42 PROCEDURE(S) PERFORMED [id number] W OR WO PTCA, SINGLE CORONARY ARTERY CLINICAL PROFILE AND CO-MORBIDITIES Indications: Suspected CAD, New Onset Angina <= 2 months, Stable Known CAD Heart Failure: None Stress/Imaging Stress Test w/SPECT MPI: Yes Result: Positive Intermediate Risk Stress Test with S PECT MPI: Positive Intermediate RiskStress/Image Study Performed: No Angina Classification Anginal Classification w/in 2 Weeks: CCS III CAD Presentations: Stable angina. Other: Dyspnea on exertion Comorbidities/Risk Factors: Hypertension Dyslipidemia Diabetes Mellitus: Diabetes Therapy: Oral Diabetes Mellitus: Diabetes Therapy: Insulin Prior PCI CONCLUSIONS Successful STEPHANIE to proximal PDA with a 2.5 x 16 Promus Synergy stent, post dilated with a 2.5 x 8 NC b alloon at 14 jakob; 75%-->0%, no dissection. Successful Mynx closure device. RECOMMENDATIONS Highly recommend quitting all tobacco products Follow up with primary line erector Risk factor modification ASA Indefinitley Plavix for at least 12 months Routine post interventional care Refer for Outpatient Cardiac Rehab Manual sheath removal per protocol Highly recommend quitting all tobacco products Follow up with primary line erector Risk factor modification ASA Indefinitley Plavix for at least 12 months Routine post interventional care Refer for Outpatient Cardiac Rehab Manual sheath removal per protocol Follow up with Dr. Shipley Stress test in 2 weeks to eval distal LAD lesion. DESCRIPTION OF PROCEDURE The patient arrived to the procedure lab. The risks and benefits of the procedure as well as a full d escription of our services here and current unavailability of surgical backup were fully explained to the patient and/or their significant other prior to the catheterization. The Timeout was completed, verifying the correct patient and procedure. The patient's procedural site was prepped and draped in the usual fashion. Local anesthetic was given subcutaneously to right groin region with Lidocaine 2% Using a modified Seldinger technique,arterial access was obtained via the right femoral artery, a 5Fr sheath was inserted. Left Coronary Artery selective angiography was performed in multiple views usin g a 5 Fr. JL4 catheter. Right Coronary Artery selective angiography was then performed in multiple vi ews using a 5 Fr. 3DRC (Jackson) catheter. Left Ventriculography was performed in PELAYO projection usi ng a 5 Fr. Pigtail catheter. LV to AO pullback pressures were then recorded.The images were reviewed and options discussed. A decision was then made to proceed with an Intervention, IVUS o r other adjunct procedure. Arterial sheath was exchanged for a 6 Fr Sheath. HSII Guide catheter was inserted and engaged int o the RCA. BMW Guide wire was advanced to the Right PDA. Angiogram performed pre balloon dilatation. 2x12 Emerge Balloon catheter was inserted. Balloon catheter was advanced across lesion in the posteri or descending, proximal. PTCA balloon inflated at 12 atms for 12 secs. PTCA balloon inflated at 6 jakob s for 6 secs. PTCA balloon inflated at 13 atms for 10 secs. Angiogram performed post balloon dilatati on. 2.5x16 Synergy Drug Eluting stent was inserted. Drug Eluting stent was advanced across the lesion in the posterior descending, proximal. Angiogram performed post stent deployment. 2.5x8 NC Emerge Ba lloon catheter was inserted. Balloon catheter was advanced across lesion in the posterior descending, proximal. Angiogram performed post balloon dilatation. Contrast was injected through the sheath and the Right Iliac and Femoral artery were assessed for possible closure device. The arterial sheath was pulled and a Mynx closure device was deployed for hemostasis INTERVENTION INFORMATION LESION SITE: RT PDA (Proximal) Lesion Complexity: Non-High/Non-C, lesion at bifurcation: No, thrombus present: No, lesion length: 16 mm, culprit lesion: Yes Pre Stenosis: 75 % Pre intervention AUGUSTIN flow: 3 PROCEDURE: Drug Eluting Stent with pre and post dilatation Post Stenosis: 0 % Post intervention AUGUST[place] flow: 3 Lesion Devices: Patricio .014 BMW Colbert Straight 190cm Hilario Sci EMERGE MR 2.00x12 BALLOON Hilario Sci Synergy MR STEPHANIE 2.50x16 Hilario Sci NC EMERGE MR 2.50x08 BALLOON COMPLICATIONS No Complications PROCEDURE MEDICATIONS Versed 1 mg IV Heparin 6000 unit(s) IV 06/22/2018 08:53:13 Nitro 200 mcg IC 06/22/2018 08:54:28 Nitro 200 mcg IC 06/22/2018 08:54:28 Plavix 75 mg PO 06/22/2018 08:09:45 SUMMARY OF HEMODYNAMIC DATA Time AIR REST ECG 08:07:32 AO 157/89 (115) SA 08:27:57 LV 133/18, 27 08:39:14 LV 131/11, 28 08:40:19 LV 133/12, 30 08:40:25 LVp 134/10, 25 08:40:32 AOp 139/69 (94) 08:40:37 AO 106/64 (81) 08:55:[address] Hampton MD On 06/22/2018 09:27:40 [address] Hampton MD
--- NOTE | 2018-06-22 09:30 | EKG12_ITS ---
Test Reason : AM EKG Blood Pressure : / mmHG Vent. Rate : 071 BPM Atrial Rate : 071 BPM P-R Int : 152 ms QRS Dur : 082 ms QT Int : 396 ms P-R-T Axes : 042 017 013 degrees QTc Int : 430 ms Normal sinus rhythm Normal ECG No previous ECGs available Confirmed by RACQUEL OLGUIN, NEGRITA ([id number]), publication editor SAVANAH MCKNIGHT ([id number]) on 06/26/2018 9:07:07 AM Referred By: Negrita Shipley Confirmed By:NEGRITA SHIPLEY MD
[2018-06-22] MEDS: 0.9% Normal Saline 1,000 ML 150 ML IV (10:10)
--- NOTE | 2018-06-22 10:40 | CRPHASE1 ---
Patient Data/Charges Correctional Classification Counselor:: Lane Hampton Refer Phase II:: Yes Phase II Referral:: [facility] Risk Factors/Lifestyle Smoking Status: Former smoker Hx Hypertension: Yes Hx Diabetes Mellitus Type 2: Yes Height: 1.8 m Weight:: 125.645 kg BMI: 38.6 Family History: Family History (Last Reviewed 06/13/18 @ 10:57 by Efraín Shipley MD) Sister Hypertension Father Myocardial infarction Mother Cancer Phase I Education Given On:: [place], Nutrition, Antiplatelet medication, CHF, Smoking cessation, Diabetes - Type I, Diabetes - Type II Knowledge of Condition:: Yes Medical/Surgical History Diabetes Type II:: Yes Hypertension:: Yes PTCA:: Yes Discharge/Home/Social Eval Discharge Disposition: Home
--- NOTE | 2018-06-22 10:43 | CRPHASE1_ITS ---
Patient Data/Charges Gas Treater:: Lane Hampton Refer Phase II:: Yes Phase II Referral:: [facility] Risk Factors/Lifestyle Smoking Status: Former smoker Hx Hypertension: Yes Hx Diabetes Mellitus Type 2: Yes Height: 1.8 m Weight:: 125.645 kg BMI: 38.6 Family History: Family History (Last Reviewed 06/13/18 @ 10:57 by Efraín Shipley MD) Sister Hypertension Father Myocardial infarction Mother Cancer Phase I Education Given On:: [place], Nutrition, Antiplatelet medication, CHF, Smoking cessation, Diabetes - Type I, Diabetes - Type II Knowledge of Condition:: Yes Medical/Surgical History Diabetes Type II:: Yes Hypertension:: Yes PTCA:: Yes Discharge/Home/Social Eval Discharge Disposition: Home
--- NOTE | 2018-06-22 10:43 | CRPH1.INSTRU ---
General Education CAD and cardiac anatomy and function:: Patient communicates acknowledgment Explanation of diagnoses and procedures:: Patient communicates acknowledgment Sign/Symptoms of [place]:: Patient communicates acknowledgment Antiplatelet therapy: Patient communicates acknowledgment Emergency procedures and activation of EMS: Patient communicates acknowledgment Compliance of all prescribed medications: Patient communicates acknowledgment Smoking Patient Nicotine/Smoking Risk Factors Are:: Non-smoker Recommendations Include:: Previous smoker; encourage continued cessation Nicotine/Smoking Response Code:: Patient communicates acknowledgment Dyslipidemia Dyslipidemia Response Code:: Patient communicates acknowledgment Overweight/Obesity Patient Overweight/Obesity Risk Factors Are:: Obesity - > or = 30 Recommendations Include:: Weight loss of 5-10%, Reduced calorie diet, Exercise 5-7 times/week Overweight/Obesity:: Patient communicates acknowledgment Hypertension Hypertension:: Patient communicates acknowledgment Heart Disease Heart Disease Response Code:: Patient communicates acknowledgment Diabetes Patient Diabetes Risk Factors Are:: Elevated blood sugars Recommendations Include:: Maintain fasting blood sugars 70-110 md/dL, Maintain HgbA1c of 6% or less, Monitor blood sugar as prescribed, Diabetic dietary guidelines, Decrease/maintain body weight Diabetes:: Patient communicates acknowledgment Metabolic Syndrome Metabolic Syndrome Response Code:: Patient communicates acknowledgment Sedentary Sedentary Response Code:: Patient communicates acknowledgment
[2018-06-22 11:30] LABS: Bedside Glucose 140 mg/dL (70-110)
[2018-06-22 17:01] LABS: Bedside Glucose 220 mg/dL (70-110)
[2018-06-22] MEDS: Insulin NPH Human 100 UNITS/ML PEN 50 UNITS SC (17:15)
[2018-06-22] MEDS: Atorvastatin Calcium 40 MG Tablet PO (21:25)
[2018-06-22] MEDS: Insulin Lispro 100 UNIT/ML INSULN.PEN SC (21:31)
[2018-06-22 21:36] LABS: Bedside Glucose 190 mg/dL (70-110)
[2018-06-23] VITALS (8 sets, daily range): BP systolic 115–189; BP diastolic 48–89; PULSE 59–74; RESP 14–20; TEMP 36.6–36.8; O2SAT 89–98
[2018-06-23 04:18] LABS: Hematocrit 42.1 % (40-54); Hemoglobin 14.1 g/dl (13.0-16.5); Mean Corp Hgb Conc 33.5 g/gl (32-36); Mean Corpuscular Volume 80.5 fL (80-94); Mean Platelet Vol. 10.9 fl (6.2-12.0); Platelet Count 178 K/mm3 (150-450); RBC Distribution Width SD 43.5 fl (35.1-43.9); Red Blood Count 5.23 M/mm3 (4.6-6.2); White Blood Count 11.2 K/mm3 (4.4-11.0)
[2018-06-23 04:25] LABS: Scan Indicated on CBC? Y/N NO
[2018-06-23 04:39] LABS: Anion Gap 9 (5-15); BUN 15 mg/dL (7-18); BUN/Creat Ratio 20.4 RATIO (10-20); Calcium,Total 8.4 mg/dL (8.5-10.1); Chloride 104 mmol/L (98-107); Cholesterol 120 mg/dL (200); Creatinine, Serum 0.73 mg/dL (0.70-1.30); EST Glomerular Filtration Rate 113 mL/min (>60); Est Glom Filt Rate - Afr Amer 136 mL/min (>60); Estimated Creatinine Clearance 74.25 ml/min; Glucose 205 mg/dL (74-106); High Density Lipoprotein 25 mg/dL; Potassium 4.3 mmol/L (3.5-5.1); Sodium Level 140 mmol/L (136-145); Triglycerides 314 mg/dL; Very Low Density Lipoprotein 63 mg/dL (5-40)
[2018-06-23] MEDS: Lisinopril 20 MG Tablet PO (06:52)
[2018-06-23 06:55] LABS: Bedside Glucose 234 mg/dL (70-110)
[2018-06-23] MEDS: Atenolol 50 MG Tablet PO (07:26)
[2018-06-23] MEDS: hydroCHLOROthiazide 12.5mg 12.5 MG PO (07:26)
[2018-06-23] MEDS: Sertraline 100 MG Tablet PO (07:27)
[2018-06-23] MEDS: Clopidogrel Bisulfate 75 MG Tablet PO (07:27)
[2018-06-23] MEDS: Aspirin E.C. 81 MG Tablet PO (07:28)
[2018-06-23] MEDS: Insulin NPH Human 100 UNITS/ML PEN 50 UNITS SC (08:47)
[2018-06-23] MEDS: Insulin Lispro 100 UNIT/ML INSULN.PEN SC (08:49)
--- NOTE | 2018-06-23 09:40 | PN.CARD_ITS ---
Subjectve: Patient seen and evaluated. Appears to be doing well. Had uneventful night. Objective: Vital Signs Temp Pulse Resp BP Pulse Ox 98.2 F 69 16 182/87 H 89 06/23/18 04:00 06/23/18 06:00 06/23/18 06:00 06/23/18 06:00 06/23/18 06:00 Oxygen Flow Rate (L/min) 2 Oxygen Delivery Method Room Air Weight: 277 lb 5.464 oz Body Mass Index (BMI) 39.4 Intake and Output for Last 24 Hours 06/21/18 06/22/18 06/23/18 23:59 23:59 23:59 Intake Total 1360 / 1360 500 / 500 Output Total 900 / 900 1100 / 1100 Balance 460 / 460 -600 / -600 General: Awake, Alert, Oriented x 3 HEENT: PERRL, EOMI, Sclera Non Icteric Neck: Supple, Good ROM, No Lymph Node Enlargement Lungs: Clear to auscultation Cardiovascular: Regular Rhythm, Normal S1, Normal S2, No Murmurs, No Rubs, No Gallops Vascular: No Carotid Bruits, Normal Femoral Pulses, Normal Radial Pulses, Normal Dorsalis Pedal Pulse, Normal Posterior Tibial Pulses Abdomen: Bowel Sounds Present, Soft, Non Tender, No HSM, No Organomegaly Extremities: No Cyanosis, No Clubbing, No edema Neurological: No Focal Motor or Sensory Deficit 06/23/18 04:10: WBC 11.2 H, RBC 5.23, Hgb 14.1, Hct 42.1, MCV 80.5, MCH 27.0, MCHC 33.5, RDW 15.0 H, RDW Differential 43.5, Plt Count 178, MPV 10.9 06/23/18 04:10: Sodium 140, Potassium 4.3, Chloride 104, Carbon Dioxide 27.0, Anion Gap 9, BUN 15, Creatinine 0.73, Est GFR (MDRD) Af Amer 136, Est GFR (MDRD) Non-Af 113, BUN/Creatinine Ratio 20.4 H, Glucose 205 H, Calcium 8.4 L, Triglycerides 314 H, Cholesterol 120, LDL Cholesterol 32, VLDL Cholesterol 63 H, HDL Cholesterol 25 L Rhythm: EKG: ECHO: Stress Test: Cardiac Cath: PCI: CT Surgery: Holter monitor: EPS: PPM: CXR: Chest CT Scan: Medical Necessity - Tobacco Use Smoking Status: Former smoker Assessment/Plan 1. Coronary artery disease * Patient is status post cardiac catheterization and intervention with a drug- eluting stent in the distal right coronary artery successfully. The patient's creatinine remained stable and hemoglobin has remained stable with no EKG changes or arrhythmias. * Plan is to continue patient on the current medical therapy and obtain a stress test in approximately 6 weeks. * 2. Hypertension * Blood pressure appears to be somewhat elevated. * Medications given today and will reevaluate in the office * The recommendations will be made depending on those results. * * Will discharge later today.
--- NOTE | 2018-06-23 09:41 | PCM.DC.CCA ---
Discharge Diet: Low fat/ Low Cholesterol Lifting Restrictions: 10 pounds and also avoid any pushing or pulling for 3 days after your test. Additional Activity Instructions:: You must have someone drive you home. Do not drive until instructed by your doctor. You must have someone stay with you all night after your test. Rest in bed or on the couch until the next morning. Limit the number of times you go up and down stairs the day of your test. Apply pressure to the puncture site if you sneeze or cough. Call your doctor if your incision/area has: Increased Pain/ Swelling, Increased Redness, Foul Smelling Discharge, Swelling at the incision site Call your doctor if you observe: Fever of 101 or Higher Additional Dressing/Incision Instructions:: Keep the dressing (bandage) on until the next morning. You may then shower, but do not take a tub bath for 5 days after your test. It is normal to have some tenderness and discomfort at the puncture site. Sometimes bruising also occurs. However, if pain, numbness, or coldness occurs below the puncture site (in your leg, toes, arms or fingers) call your doctor at once. You may have a small, marble sized knot at the puncture site. This is normal. Do not rub it. It will go away in 4-6 weeks. Bleeding can occur from the area where the puncture was done. Blood may spurt or drip from the site. If blood spurts, apply pressure right away to stop bleeding and call 911. Although rare, bleeding into the tissue (hematoma) can also occur. If this happens, a large, firm area goose egg under the skin will appear. If any of these occur, lie down as flat as you can and have someone apply firm pressure to the cath site with a gauze pad or a clean washcloth for 10-15 minutes. Call 911 or go to the Emergency Department. Allergies/Adverse Reactions: Allergies amoxicillin [From Augmentin] Adverse Reaction (Verified 05/23/18 10:44) gi upset clavulanic acid [From Augmentin] Adverse Reaction (Verified 05/23/18 10:44) gi upset Medications to take at Discharge insulin NPH isophane U- 100 human 100 unit/mL subcutaneous suspension 50 unit SC BID ml 05/22/18 lisinopril 20 mg-hydrochlorothiazide 12.5 mg tablet 1 tab PO DAILY 05/22/18 sertraline 100 mg tablet 100 mg PO DAILY 05/22/18 aspirin 81 mg tablet,delayed release 81 mg PO DAILY #90 tab 06/13/18 atenolol 50 mg tablet 50 mg PO DAILY #90 tab 06/13/18 clopidogrel 75 mg tablet 75 mg PO DAILY #90 tab 06/13/18 metformin ER 500 mg tablet,extended release 24 hr 500 mg PO BID tab 06/13/18 rosuvastatin 20 mg tablet 20 mg PO DAILY #90 tab 06/13/18 Primary Care Physician: Uriel Garcia MD [Primary Care Provider] - Test Results: Test results from this visit will be discussed in further detail at your follow-up appointment, if applicable. When: heart group office will call for follow up and stress test Proposed Discharge Date: 06/23/18 Cardiac Rehabilitation Info Cardiac Rehabilitation Program Information: Cardiac Rehabilitation is important for patients like you who are recovering from a heart problem. Cardiac rehabilitation programs are recognized as integral to the continued care of the patient with coronary heart disease. The cardiac rehabilitation program is designed to optimize a patient's physical, psychological, and social functioning. Health complex care nurse work in cardiac rehabilitation programs and assist you with getting the treatments you need to get stronger and healthier - like exercise, healthy eating habits, and medications. Cardiac rehabilitation has been show to help people with heart problems live longer and have better life enjoyment than people who do not go to cardiac rehabilitation. Please contact the Cardiac Rehabilitation Program at [facility] at in two weeks if you have not heard from them.
--- NOTE | 2018-06-23 10:00 | EKG12_ITS ---
Test Reason : POST PCI Blood Pressure : / mmHG Vent. Rate : 061 BPM Atrial Rate : 061 BPM P-R Int : 160 ms QRS Dur : 084 ms QT Int : 386 ms P-R-T Axes : 037 020 020 degrees QTc Int : 388 ms Normal sinus rhythm Normal ECG No previous ECGs available Confirmed by RACQUEL OLGUIN, NEGRITA ([id number]), proposal editor SAVANAH MCKNIGHT ([id number]) on 06/26/2018 9:07:33 AM Referred By: Negrita Shipley Confirmed By:NEGRITA SHIPLEY MD
[2023-09-22 15:09] LABS: ACT Activated Clotting Time 153 sec (74-137)
== END 2018-06-23 10:43 | disposition home or self-care (01) ==
LOC: CLSP 07:51 → ICU 10:56
PROVIDERS: Internal Medicine Cardiovascular Disease; Family Provider Family Medicine; PCP Family Medicine; Referring Provider Internal Medicine Cardiovascular Disease; Visit Provider Internal Medicine Cardiovascular Disease
DX: I25.10 Atherosclerotic heart disease of native coronary artery without angina pectoris (principal); R06.00 Dyspnea, unspecified; I10 Essential (primary) hypertension; E78.5 Hyperlipidemia, unspecified; E11.9 Type 2 diabetes mellitus without complications; E66.9 Obesity, unspecified; Z68.38 Body mass index [BMI] 38.0-38.9, adult; G47.33 Obstructive sleep apnea (adult) (pediatric); M19.90 Unspecified osteoarthritis, unspecified site; Z87.891 Personal history of nicotine dependence; Z79.4 Long term (current) use of insulin; Z79.82 Long term (current) use of aspirin; Z79.899 Other long term (current) drug therapy
CPT/HCPCS: 80048; 80061; 82962; 85027; 85347; 92928; 93005; 93458; 99152; 99153; J7030; J7040; Q9967; C1725; C1874; C1887; C9600

== ENCOUNTER → 2018-11-05 | Outpatient (CLI) | payer MEDICARE, SELFPAY ==
[2018-06-22 10:42] VITALS: BMI 38.6
[2018-11-05 09:18] VITALS: BMI 39.4
[2018-11-05 10:45] LABS: Absolute Lymphocyte Count 1.09 X10^3/ul (0.83-4.51); Absolute Neutrophil Count 8.7 X10^3/uL (2.0-7.7); Basophil# 0.03 X10^3/uL; Basophil% 0.3 % (0-1); Eosinophil# 0.67 X10^3/uL; Hemoglobin 13.7 g/dl (13.0-16.5); Lymphocyte # 1.09 X10^3/ul (4.0); Lymphocyte % 9.8 % (19-41); Mean Corp Hgb Conc 33.4 g/gl (32-36); Mean Corpuscular Volume 80.7 fL (80-94); Mean Platelet Vol. 10.4 fl (6.2-12.0); Monocyte# 0.55 X10^3/uL; Monocyte% 4.9 % (0-10); Neutrophil # 8.74 X10^3/uL (2.7-7.7); Neutrophil % 78.2 % (47-70); POSITIVE COUNT NO; POSITIVE DIFFERENTIAL NO; POSITIVE MORPHOLOGY NO; Platelet Count 161 K/mm3 (150-450); RBC Distribution Width SD 43.4 fl (35.1-43.9); Red Blood Count 5.08 M/mm3 (4.6-6.2); White Blood Count 11.2 K/mm3 (4.4-11.0)
[2018-11-05 11:31] LABS: Anion Gap 4 (5-15); BUN 24 mg/dL (7-18); BUN/Creat Ratio 31.2 RATIO (10-20); Calcium,Total 8.5 mg/dL (8.5-10.1); Chloride 105 mmol/L (98-107); Creatinine, Serum 0.77 mg/dL (0.70-1.30); EST Glomerular Filtration Rate 106 mL/min (>60); Est Glom Filt Rate - Afr Amer 129 mL/min (>60); Glucose 197 mg/dL (74-106); Potassium 4.1 mmol/L (3.5-5.1); Sodium Level 137 mmol/L (136-145)
[2018-11-05 11:35] LABS: BNP,B-Type NATRIURETIC PEPTIDE 221.5 pg/mL (0-100)
== END | disposition home or self-care (01) ==
LOC: LAB 09:36
PROVIDERS: Family Provider Family Medicine; PCP Family Medicine; Referring Provider Nurse Practitioner Family; Visit Provider Nurse Practitioner Family
DX: I10 Essential (primary) hypertension (principal); R06.09 Other forms of dyspnea; I25.10 Atherosclerotic heart disease of native coronary artery without angina pectoris; Z95.5 Presence of coronary angioplasty implant and graft
CPT/HCPCS: 36415; 80048; 83880; 85025